=== PATIENT | female | born 1990 | race Caucasian/White ===

== ENCOUNTER 2021-01-10 05:35 | Inpatient (IN) | payer OTHER ==
[~2021-01-10] VITALS: Ht 165.1 cm; Wt 77.1 kg
[2021-01-10] MEDS ORDERED: PRENATAL COMPL1 EACH PO (06:05)
[2021-01-10] MEDS ORDERED: FERROUS FUMARA324 MG PO (06:05)
[2021-01-10] MEDS ORDERED: MACROBID 100 M100 MG PO (06:06)
[2021-01-10] MEDS ORDERED: VITAMIN C500 MG PO (06:06)
[2021-01-10] MEDS ORDERED: IRON325 M1 PO (06:07)
[2021-01-10 06:31] LABS: HEMOGLOBIN 13.4 gm/dl (12.3-15.3); RED BLOOD COUNT 4.05 M/UL (4.00-5.10); WHITE BLOOD COUNT 13.4 K/UL (4.5-11.0)
[2021-01-10] MEDS ORDERED: HYDROCODON-ACE1 EAC4 PO (15:58)
[2021-01-10] MEDS ORDERED: IBUPROFEN800 MG PO (15:58)
[2021-01-10] MEDS ORDERED: DOCUSATE SODIU100 MG PO (15:58)
[2021-01-11 06:29] LABS: HEMOGLOBIN 9.3 gm/dl (12.3-15.3)
== END 2021-01-11 18:43 | disposition home or self-care (01) | DRG 806 ==
LOC: OB 05:35
PROVIDERS: Obstetrics & Gynecology; ADMIT Obstetrics & Gynecology
PROC: 10E0XZZ Delivery of Products of Conception, External Approach (ICD-10-PCS; principal; 2021-01-10)
PROC: 0KQM0ZZ Repair Perineum Muscle, Open Approach (ICD-10-PCS; 2021-01-10)
PROC: 10907ZC Drainage of Amniotic Fluid, Therapeutic from Products of Conception, Via Natural or Artificial Opening (ICD-10-PCS; 2021-01-10)
PROC: 3E033VJ Introduction of Other Hormone into Peripheral Vein, Percutaneous Approach (ICD-10-PCS; 2021-01-10)
PROC: 3E0234Z Introduction of Serum, Toxoid and Vaccine into Muscle, Percutaneous Approach (ICD-10-PCS; 2021-01-10)
DX: O48.0 Post-term pregnancy (principal); O98.813 Other maternal infectious and parasitic diseases complicating pregnancy, third trimester; Z37.0 Single live birth; Z3A.41 41 weeks gestation of pregnancy; O70.1 Second degree perineal laceration during delivery; R12 Heartburn; O75.89 Other specified complications of labor and delivery; Z23 Encounter for immunization
CPT/HCPCS: 36415; 51702; 81001; 82800; 85014; 85018; 85025; 90715; J2590; J2795; J7120

== ENCOUNTER → 2021-09-12 | Outpatient (CLI) | payer OTHER ==
[~2021-09-12] MED LIST: DOCUSATE SODIU100 MG PO; FERROUS FUMARA324 MG PO; HYDROCODON-ACE1 EAC4 PO; IBUPROFEN800 MG PO; IRON325 M1 PO; MACROBID 100 M100 MG PO; PRENATAL COMPL1 EACH PO; VITAMIN C500 MG PO
[2021-09-13 08:14] LABS: VITAMIN D, 25-HYDROXY 31.5 ng/mL (30.0-100.0)
[2021-09-13 12:14] LABS: COMPLEMENT C3, SERUM 158 mg/dL (82-167); COMPLEMENT C4, SERUM 39 mg/dL (12-38); RHEUMATOID ARTHRITIS FACTOR <10.0 IU/mL (<14.0)
== END ==
LOC: LAB 11:23
PROVIDERS: Nurse Practitioner Family
DX: M25.50 Pain in unspecified joint (principal); E55.9 Vitamin D deficiency, unspecified; M79.10 Myalgia, unspecified site; R76.8 Other specified abnormal immunological findings in serum
CPT/HCPCS: 36415; 82550; 82728; 83520; 84439; 84443; 85652; 86140; 86160; 86162; 86200; 86431

== ENCOUNTER → 2021-10-31 | Outpatient (CLI) | payer OTHER | LOC: KOH-I 11:53 | DX: M54.40 Lumbago with sciatica, unspecified side (principal); M46.1 Sacroiliitis, not elsewhere classified; R10.2 Pelvic and perineal pain | CPT/HCPCS: 72100; 72170; 72202 ==